=== PATIENT | female | born 1960 | race Caucasian/White ===

== ENCOUNTER → 2016-06-13 | Outpatient (CLI) | payer OTHER ==
--- NOTE | ~2016-06-13 | MY11 ---
[facility] A Service of [facility] RADIOLOGY TEXT RESULTS PATIENT: SATYA PARK LOCATION: [facility] : 56 UNIT #: [id number] AGE: [address]: Darian Bauer MD SEX: F ORDER DR: [id number] [address] [address] [id number] O MR#: [id number] Acc #: [id number] NAME: SATYA PARK : 1960 SEX: F STUDY DATE/TIME: 06/13/2016 14:23 UNIT: [facility] ROOM: STUDY DESCRIPTION: MY Mammogram Screening Dig Adam Attending Physician: Darian Bauer M.D. Referring Physician: Darian Bauer M.D. Ordering Physician: Darian Bauer M.D. Primary Care Physician: Darian Bauer M.D. MEDICAL IMAGING REPORT This report is preliminary unless electronic signature is present. EXAM Digital screening mammogram, 06/13/2016, [facility]. HISTORY 55-year-old woman positive family history, maternal aunt. Prior breast reduction mammoplasties 10+ years ago. Annual screen. COMPARISON 04/29/2010, 04/26/2012. TECHNIQUE Digital imaging of each breast was completed utilizing screening protocol. Review includes FDA-approved CAD device. FINDINGS Breast parenchyma is partially fatty replaced. Subareolar duct prominence is again noted. Dominant duct ectasia is stable in the left breast. Occasional benign calcification in each breast. I see no suspicious mass or suspicious microcalcifications and no architectural distortion. IMPRESSION Stable benign mammogram. Annual screening recommended. Patients over the age of 40 are entered into a reminder system with target due date for the next mammogram. A result letter will also be sent to the patient. BIRADS: 2 Benign finding. Dictated by... [facility] A Service of [facility] RADIOLOGY TEXT RESULTS PATIENT: SATYA PARK LOCATION: [facility] : 56 UNIT #: [id number] AGE: [address]: Darian Bauer MD SEX: F ORDER DR: Juan Odonnell M.D. THIS IS AN ELECTRONICALLY VERIFIED REPORT Juan Odonnell M.D. at 06/19/2016 12:07 PM CRISTOBAL/nohemy TD: 06/19/2016 12:00 JOB #: [id number] MEDICAL IMAGING REPORT Page 1 of 1
== END | disposition home or self-care (01) ==
LOC: SMAM 13:40
DX: Z12.31 Encounter for screening mammogram for malignant neoplasm of breast (principal); Z80.3 Family history of malignant neoplasm of breast; Z98.890 Other specified postprocedural states
CPT/HCPCS: G0202